=== PATIENT | male | born 1945 | race Caucasian/White ===

== ENCOUNTER → 2017-01-02 | Outpatient (CLI) | payer MEDICARE, BC ==
[2017-01-02 09:00] LABS: Blood Urea Nitrogen 10 mg/dL (9-20); Non-African American GFR(MDRD) >60 (>60 ml/min/1.73 sqM)
--- NOTE | 2017-01-02 10:12 | CT ---
EXAMINATION TYPE: CT sinus wo con DATE OF EXAM: 01/02/2017 COMPARISON: NONE HISTORY: Patient complains of chronic sinus congestion and drainage. CT DLP: 712.3 mGycm. Automated Exposure Control for Dose Reduction was Utilized. TECHNIQUE: CT scan of the sinuses is performed without contrast, axial images are obtained, coronal r eformatted images are also reviewed. FINDINGS: Scant mucosal thickening is seen within the ethmoid and maxillary sinuses. The frontal sinu ses and sphenoid sinuses are well aerated and clear. The visualized anterior mastoid air cells and in ner ears are patent and well aerated. The ostiomeatal complexes are patent. Small right-sided Javier cell is incidentally noted as well as bilateral middle nasal turbinate eunice bullosa. No nasal turbi sami hypertrophy creating obstruction is seen. Maxillary spine is intact and nasal septum is midline. Lamina papyracea and nasal bone are intact wit h slight flattening of the nasal bridge, which may relate to prior injury. Atherosclerosis is seen of the intracranial vasculature. Exam is not optimized for evaluation of the intracranial structures. Calvarium appears intact. The globes are intact bilaterally. IMPRESSION: Mild ethmoidal and maxillary mucosal thickening, small right-sided Javier cell, and nonobstructive bi lateral middle meatal eunice bullosa without ostiomeatal occlusion.
--- NOTE | 2017-01-02 10:25 | CT ---
EXAMINATION TYPE: CT soft tissue neck w con DATE OF EXAM: 01/02/2017 HISTORY: Patient complains of chronic sinus congestion, drainage and throat pain. COMPARISON: NONE CT DLP: 433.1 mGycm. Automated Exposure Control for Dose Reduction was Utilized. TECHNIQUE: CT scan of the neck is performed with IV Contrast, patient injected with 100 mL of Omnipa que 300, axial images are obtained, coronal and sagittal reformatted images are reviewed. FINDINGS: Airway: No gross abnormality seen. Airway remains patent. True and false vocal cords are unremarkable . Vallecula and piriform sinuses are well aerated. No proximal tracheal polyp is seen. Numerous denta l fillings create extensive spray artifact at the level of oropharynx and partially obscure visualiza tion. Pharyngeal tonsils, torus tubarius, and fossa of Rosenmuller appear unremarkable bilaterally. Parotid/submandibular glands: No gross abnormality seen. Glands are symmetric without surrounding in flammatory change. Carotid/Vascular Structures: No significant stenosis is appreciated and left carotid bulb calcific at heromatous changes are seen occupying less than 50% of the luminal diameter. Osseous Structures: Osseous structures are intact with degenerative changes of the cervical spine. Th clementina are most pronounced at C5-C6 with posterior disc osteophyte complex, intervertebral disc space na rrowing, uncovertebral hypertrophy, facet arthropathy, and osseous cystic changes. Other: Nonenlarged submandibular lymph node as well as anterior and posterior cervical chain lymph no april are present. Left vertebral artery is noted to be diminutive with a dominant right vertebral qi ry. Median sternotomy wires are present as well as mediastinal clips. Lung apices are well aerated wi th few paraseptal emphysematous changes seen. Right upper lobe pulmonary nodule is present on image 1 2 measuring 3 mm, solid in nature. This is also seen on coronal series 8 image 33. Circumferential mucosal thickening of the proximal esophagus may relate to nondistention or esophagit is. Wall measures up to 6 mm on series 6 image 23 where the lumen is fluid-filled. IMPRESSION: 1. Patency of the airway with unremarkable true and false vocal cords, vallecula, and piriform sinuse s. No proximal tracheal polyp. 2. Circumferential mild thickening of the proximal esophagus which may relate to esophagitis or nondi stention. 3. Nonhemodynamically significant left carotid bulb atherosclerosis. 4. Right upper lobe 3 mm solid pulmonary nodule. CT thorax could be performed for further evaluation of the lungs and identification of any other pulmonary nodules for better recommendation of follow-up examination interval. 5. Multilevel degenerative disc disease of the cervical spine most pronounced at C5-C6 resulting in m ild spinal canal stenosis.
== END | disposition home or self-care (01) ==
LOC: RADCTMAIN 08:10
PROVIDERS: ATTEND Otolaryngology
DX: J34.89 Other specified disorders of nose and nasal sinuses (principal); M48.02 Spinal stenosis, cervical region; M50.322 Other cervical disc degeneration at C5-C6 level; R07.0 Pain in throat
CPT/HCPCS: 82565; 84520; 70491; 70486; Q9967

== ENCOUNTER 2017-02-05 10:05 | Day surgery (SDC) | payer MEDICARE, BC ==
[2017-02-03 11:06] VITALS: BMI 29.4
[~2017-02-05 10:05] MED LIST: DEXAMETHASONE SOD PHOSPHATE 10 MG/ML 1 ML VIAL IV ONE; DEXAMETHASONE SOD PHOSPHATE 4 MG/ML 1 ML VIAL IV ONE; FAMOTIDINE 20 MG/2 ML VIAL IV ONE; HYDROmorphone 0.5 MG/0.5 ML SYRINGE IVP PRN; LACTATED RINGERS 1,000 ML IV SCH; ONDANSETRON 4 MG/2 ML VIAL IVP ONE; ceFAZolin 2 GM in SODIUM CHLORIDE 0.9% 100 ML IVPB ONE
[2017-02-05 11:26] VITALS: TEMP 97.9
[2017-02-05] MEDS ORDERED: hydrALAZINE HCL 20 MG/ML 1 ML VIAL ONE (13:03)
[2017-02-05] MEDS ORDERED: MORPHINE SULFATE 10 MG/ML SYRINGE ONE (13:03)
[2017-02-05] MEDS ORDERED: KETAMINE 10 MG/ML 20 ML VIAL ONE (13:03)
[2017-02-05] MEDS ORDERED: fentaNYL (PF) 50 MCG/ML 2 ML AMP ONE (13:03)
[2017-02-05] MEDS ORDERED: MIDAZOLAM 2 MG/2 ML VIAL ONE (13:03)
[2017-02-05] MEDS ORDERED: LIDOCAINE 2%-EPI 1:100,000 20 ML VIAL SQ ONE ×2 (13:34)
[2017-02-05 14:18] VITALS: RESP 16
[2017-02-05 14:44] VITALS: BP 147/71; PULSE 57
--- NOTE | 2017-02-05 18:26 | OP ---
OPERATIVE REPORT DATE OF SERVICE: 02/05/2017. SURGEON: Kwame Thompson D.O. SPONGE, INSTRUMENT AND NEEDLE COUNT: Correct. ANESTHESIA: A local with sedation. 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 OPERATIVE PROCEDURE: Excision of a 4.2 x 1.5 cm nasal dorsal basal cell carcinoma with reconstruction utilizing bilateral advancement flap closures with a secondary defect measuring 8.4 x 3 cm. OPERATIVE BLOOD LOSS: Minimum. OPERATIVE INDICATIONS: This patient had a previous basal cell carcinoma removed with positive margins and wide resection was needed. All risks, benefits, alternative therapies, and complications were discussed in detail. Consent was obtained. All questions were answered. OPERATIVE PROCEDURE: The patient was taken to the operating room, placed in the supine position. A general inhalation anesthetic was administered to the patient by mask and subsequently monitored throughout the entire case by the Department of Anesthesia. The patient was sterilely prepped and draped in the usual fashion. The face was cleansed and anesthetized and with use of a 15 blade over the nasal dorsum, an excision was made and this cancer was removed. This was sent for frozen section and all margins came back negative for tumor. This left a large defect measuring 4.2 x 1.5 cm over the nasal dorsum. We elevated medial and lateral bilateral advancement flaps, elevated the flaps, rotated them into position and closed the nasalis muscle with the use of a 4-0 Monocryl, the deep dermal layer with 4 Monocryl and the skin with a 5-0 Prolene in a running locking fashion. We did remove Burow's triangles when we rotated the skin flaps into position to close this defect. Again, the secondary defect measured 8.4 x 3 cm. The patient tolerated this well. Follow up will be in the office in 1 week. Steri-Strips were applied. MMODL / IJN: [id number] /
--- NOTE | 2017-02-10 07:10 | OP ---
OPERATIVE REPORT DATE OF SERVICE: 02/05/2017. TYPE OF CASE: Elective. SURGEON: Dr. Kwame Thompson D.O. Sponge and needle count was correct. ANESTHESIA: Anesthesia is a general. PREOPERATIVE DIAGNOSIS: Basal cell carcinoma, nasal dorsum measuring 4.5 x 2 cm. POSTOPERATIVE DIAGNOSIS: Basal cell carcinoma, nasal dorsum measuring 4.5 x 2 cm. PROCEDURES: Excision of a 4.5 x 2 cm nasal dorsal basal cell carcinoma with reconstruction utilizing bilateral advancement flap closure with a secondary defect measuring 9 x 4 cm with the use of frozen section intraoperatively. BLOOD LOSS: Minimum. COMPLICATIONS: None. OPERATIVE INDICATIONS: This patient had continued cancer of the nasal dorsum. Wider resection and removal was recommended. All risks, benefits, alternative therapies, and complications were discussed in detail. Consent was obtained. All questions were answered. OPERATIVE FINDINGS: The patient's frozen sections demonstrated that the margins were negative for tumor. OPERATIVE PROCEDURE: This patient was taken to the operative room and placed in the supine position. A general inhalation anesthetic was administered to the patient by mask and subsequently monitored throughout the entire case by the Department of Anesthesia. The face was sterilely prepped and draped in the usual fashion and the nose and nasal dorsum was injected with lidocaine 1% with epinephrine, 1:100,000. Ten minutes were allowed to wait for vasoconstrictive effect to take place. At this time, an incision was made surrounding this residual malignancy and removed with delicate plastic scissors and Brown Adson forceps. This was sent for frozen section analysis. All margins came back negative for tumor. This left a very large defect of the nasal dorsum measuring 4.5 x 2 cm. We then developed bilateral advancement flaps on the right side and the left side to close this midline defect. We made an H-type incision and removed elzbieta's triangles. We did extensive undermining along the area underneath the nasalis muscle bilaterally to the maxilla. We rotated the adjacent skin and closed this defect. We closed the nasalis muscle and periosteum with the use of a 4-0 Monocryl. We closed the deep dermal layer with a 4-0 Monocryl. The deep dermal layer with 4-0 Monocryl and the skin was closed with a 5 and 6-0 nylon in a running nonlocking fashion. Excellent approximation was obtained. The patient tolerated this well. Follow up will be in the office in 1 week. The patient is to contact me if any problems should arise. MMODL / IJN: [id number] /
== END 2017-02-05 15:10 | disposition home or self-care (01) ==
LOC: OR 10:05
PROVIDERS: ATTEND Otolaryngology
DX: C44.311 Basal cell carcinoma of skin of nose (principal); I99.9 Unspecified disorder of circulatory system; I10 Essential (primary) hypertension; R07.0 Pain in throat; M46.92 Unspecified inflammatory spondylopathy, cervical region; K21.9 Gastro-esophageal reflux disease without esophagitis; J32.9 Chronic sinusitis, unspecified; J34.2 Deviated nasal septum; C91.10 Chronic lymphocytic leukemia of B-cell type not having achieved remission; D69.6 Thrombocytopenia, unspecified; Z79.82 Long term (current) use of aspirin; Z79.51 Long term (current) use of inhaled steroids; Z79.52 Long term (current) use of systemic steroids; Z79.899 Other long term (current) drug therapy; Z87.891 Personal history of nicotine dependence
CPT/HCPCS: 14060; 88305; 88331; J2250; J0360; J1100; J2270; J0690; J2405; J3010

== ENCOUNTER → 2018-10-14 | Outpatient (CLI) | payer MEDICARE, BC ==
--- NOTE | 2018-10-14 23:57 | US ---
EXAMINATION TYPE: US thyroid st tissue head/neck DATE OF EXAM: 10/14/2018 COMPARISON: US 10/23/2011 CLINICAL HISTORY: 73-year-old male E04.1 THYROID NODULE. TECHNIQUE: Multiple sonographic images of the thyroid gland are obtained. FINDINGS: GLAND SIZE: Right Lobe: 4.9 x 1.5 x 1.1 cm Overall Parenchyma: heterogenous Left Lobe: 3.7 x 1.8 x 1.5 cm Overall Parenchyma: homogeneous Isthmus Thickness: 0.4 cm NODULES RIGHT: # of nodules measured on right: 1 1. 1.4 X 0.9 x 1.2 cm hypoechoic solid nodule at the mid pole with well-defined margins; . This no dule is wider than tall and shows intranodular vascularity. Prior size: 0.7 x 0.7 x 0.7 cm LEFT: # of nodules measured on left: 1 1. 1.9 X 1.8 x 1.2 cm echogenic mixed, primarily solid nodule at the mid pole with well-defined mar gins. This nodule is taller than wide and shows intranodular vascularity. Prior size: 1.2 x 1.3 x 1.3 cm ISTHMUS: # of nodules measured in the isthmus: 1 1. 0.7 X 0.4 x 0.6 cm hypoechoic solid nodule at the lower right pole with well-defined margins; . This nodule is wider than tall and shows no intranodular vascularity. Prior size: No previous Bilateral neck scanned, no evidence of lymphadenopathy. IMPRESSION: 1. A nodule in each lobe has increased in size as compared to 2011 (right midpole currently at 1.4 x 1.2 cm versus 7 x 7 mm, previously. Left midpole nodule currently at 1.9 x 1.8 cm versus 1.3 x 1.2 cm , previously). 2. A 7 mm isthmic nodule was not seen previously. The decision to biopsy should be made on a clinical basis.
== END | disposition home or self-care (01) ==
LOC: RADUSWWP 15:35
PROVIDERS: ATTEND Otolaryngology
DX: E04.1 Nontoxic single thyroid nodule (principal)
CPT/HCPCS: 76536

== ENCOUNTER 2018-11-04 12:27 | Day surgery (SDC) | payer MEDICARE, BC ==
[2018-11-04 13:11] VITALS: TEMP 97.9
[2018-11-04 13:56] VITALS: BP 164/83; PULSE 61; RESP 14
--- NOTE | 2018-11-04 14:45 | US ---
EXAMINATION TYPE: US FNA thyroid each add lesion, US FNA thyroid first lesion DATE OF EXAM: 11/04/2018 COMPARISON: Thyroid ultrasound 10/14/2018 HISTORY: Thyroid nodules. Maximal barrier technique was utilized. After informed consent, skin overlying the lower pole right lobe thyroid nodule was localized with ultrasound and the overlying skin prepped and draped. Ultrasou nd was utilized using sterile technique. Lidocaine was used for local anesthesia. Five passes with a 25-gauge needle were made into the nodule and aspirated specimen was submitted to cytology. Using si milar technique the left lower thyroid nodule was sampled with 5 passes, 25-gauge needle. Following t he procedure hemostasis achieved. No immediate complication. The patient discharged in stable condi tion. IMPRESSION: STATUS POST ULTRASOUND GUIDED FINE NEEDLE ASPIRATION OF BILATERAL THYROID NODULES, PATHOL OGKrystal IS PENDING. THIS PROCEDURE WAS PERFORMED BY THE UNDERSIGNED.
== END 2018-11-04 13:55 | disposition home or self-care (01) ==
LOC: RADPROMAIN 12:27
PROVIDERS: ATTEND Otolaryngology
DX: E04.2 Nontoxic multinodular goiter (principal)
CPT/HCPCS: 10005; 10006; 88173; 88305

== ENCOUNTER → 2018-11-29 | Outpatient (CLI) | payer MEDICARE, BC ==
[2018-11-30 01:39] LABS: T4, Free (Free Thyroxine) 1.1 ng/dL (0.80-1.80)
== END | disposition home or self-care (01) ==
LOC: LABWHC1 16:15
PROVIDERS: ATTEND Otolaryngology
DX: E07.89 Other specified disorders of thyroid (principal)
CPT/HCPCS: 36415; 82330; 84439; 84443; 86376

== ENCOUNTER → 2023-05-16 | Outpatient (CLI) | payer MEDICARE, BC ==
[2023-05-16 12:23] LABS: NT-Pro-B-Type Natriuretic Pept 1240 pg/mL
[2023-05-16 22:53] LABS: HCT 43.3 % (39.6-50.0); HGB 14.1 g/dL (13.0-17.0); MCH 28.7 pg (27.0-32.0); MCHC 32.6 g/dL (32.0-37.0); MCV 88.2 FL (80.0-97.0); Mean Platelet Volume 13.1 FL (9.5-12.2); NRBC Per 100 WBC 0 X 10*3/uL (0.00-0.01); Platelet Count 102 X 10*3/uL (140-440); RBC 4.91 X 10*6/uL (4.40-5.60); RDW 12.8 % (11.5-14.5); WBC 7.01 X 10*3/uL (4.50-10.00)
[2023-05-16 23:03] LABS: ALT 23 U/L (10-49); AST 20 U/L (14-35); Albumin 4.5 g/dL (3.8-4.9); Albumin/Globulin Ratio 1.45 Ratio (1.60-3.17); Alkaline Phosphatase 105 U/L (41-126); Blood Urea Nitrogen 9.7 mg/dL (9.0-27.0); Calcium 10.4 mg/dL (8.7-10.3); Carbon Dioxide 24.2 mmol/L (21.6-31.8); Chloride 104 mmol/L (96-109); Globulin 3.1 g/dL (1.6-3.3); Glucose 138 mg/dL (70-110); Potassium 4.7 mmol/L (3.5-5.5); Sodium 143 mmol/L (135-145); Total Bilirubin 0.6 mg/dL (0.3-1.2); Total Protein 7.6 g/dL (6.2-8.2)
== END | disposition home or self-care (01) ==
LOC: LABWHC1 10:16
PROVIDERS: ATTEND Family Medicine
DX: I11.0 Hypertensive heart disease with heart failure (principal); I50.40 Unspecified combined systolic (congestive) and diastolic (congestive) heart failure; R00.2 Palpitations
CPT/HCPCS: 36415; 80053; 83880; 85027